=== PATIENT | male | born 1970 | race American Indian/Alaskan Native ===

== ENCOUNTER 2017-04-10 13:32 | Observation (INO) | payer OTHER ==
[2017-04-10 13:56] VITALS: BMI 23.7
[2017-04-10] MEDS ORDERED: Sodium Chloride 0.9% 1,000 ML IV STA (13:59)
--- NOTE | 2017-04-10 14:04 | ED PDOC ---
Arrival/HPI - General Time Seen by Provider: 04/10/17 13:58 Historian: Patient - History of Present Illness Narrative History of Present Illness (Text): 04/10/17 14:01 46 y/o male, pmh including asthma, nkda, psychiatric history including alcohol abuse, c/o tremors/anxious/nausea/vomiting/diarrhea started today. Pt. stated that he has been drinking every day with alcohol dependent, last drink yesterday and suddenly stop drinking, been having nausea/vomiting with tongue and hand tremors, feeling anxious, no chest pain or shortness of breath, had abdominal pain after vomiting, no night sweat, admits couple episodes of diarrhea, no urinary symptoms, no urinary or bowel incontinence or retention, no other medical or psychological complaints. Past Medical History - Provider Review Nursing Documentation Reviewed: Yes - Pulmonary Hx Respiratory Disorders: Yes Hx Asthma: Yes - Musculoskeletal/Rheumatological Hx Falls: No - Psychiatric Hx Substance Use: No Family/Social History - Physician Review Nursing Documentation Reviewed: Yes Family/Social History: Unknown Family HX Smoking Status: Unknown If Ever Smoked Hx Alcohol Use: Yes (4 to 6 beers every other day) Hx Substance Use: No Allergies/Home Meds Allergies/Adverse Reactions: Allergies No Known Allergies Allergy (Verified 01/16/16 08:31) Home Medications: Home Meds Medication Instructions Recorded Confirmed No Known Home Med 04/10/17 04/10/17 Review of Systems - Review of Systems Constitutional: Fatigue. absent: Fevers Eyes: absent: Vision Changes ENT: absent: Hearing Changes Respiratory: absent: SOB, Cough Cardiovascular: absent: Chest Pain Gastrointestinal: Abdominal Pain, Diarrhea, Nausea, Vomiting Genitourinary Male: absent: Dysuria Musculoskeletal: absent: Arthralgias, Myalgias Skin: absent: Rash, Pruritis Neurological: absent: Headache, Dizziness Psychiatric: Other (+tremors). absent: Anxiety, Depression, Suicidal Ideation Physical Exam Vital Signs Reviewed: Yes Vital Signs Temp Pulse Resp BP Pulse Ox 04/10/17 17:53 79 18 131/76 95 04/10/17 16:50 82 18 127/76 97 04/10/17 14:09 99.0 F 74 18 123/69 98 Temperature: Afebrile Blood Pressure: Normal Pulse: Regular Respiratory Rate: Normal Appearance: Positive for: Well-Appearing, Non-Toxic, Comfortable Pain Distress: Mild Mental Status: Positive for: Alert and Oriented X 3 - Systems Exam Head: Present: Atraumatic, Normocephalic Pupils: Present: PERRL Extroacular Muscles: Present: EOMI Conjunctiva: Present: Normal Ears: Present: NORMAL TM, Normal Canal. No: Erythema Mouth: Present: Moist Mucous Membranes Pharnyx: Present: Other (+tongue fasciculations). No: ERYTHEMA, EXUDATE, TONSILS ENLARGED Nose (Internal): Present: No Active Bleeding, Moist. No: Rhinorrhea, Purulent Mucous, Epistaxis Neck: Present: Normal Range of Motion, Trachea Midline. No: Meningeal Signs, MIDLINE TENDERNESS, Paraspinal Tenderness, Lymphadenopathy Respiratory/Chest: Present: Clear to Auscultation, Good Air Exchange. No: Respiratory Distress, Accessory Muscle Use Cardiovascular: Present: Regular Rate and Rhythm, Normal S1, S2. No: Murmurs Abdomen: Present: Tenderness (+epigastric tenderness, negative cole sign), Normal Bowel Sounds. No: Distention, Peritoneal Signs, Rebound, Guarding Back: Present: Normal Inspection Upper Extremity: Present: Normal Inspection, Other (+fine hand tremors). No: Cyanosis, Edema Lower Extremity: Present: Normal Inspection. No: Edema Neurological: Present: GCS=15, CN II-XII Intact, Speech Normal, Motor Func Grossly Intact, Gait Normal, Memory Normal Skin: Present: Warm, Dry, Normal Color. No: Rashes Psychiatric: Present: Alert, Oriented x 3, Normal Insight, Normal Concentration Medical Decision Making ED Course and Treatment: 04/10/17 14:05 -labs/ua/uds/ck/magnesium level -cxr -ivf/pepcid/zofran/ativan 2mg -observe and reassess 04/10/17 17:04 -Labs are non-significant except Mg 1.6 (mag 2gm IV ordered), Bilirubin 3.0 ( epigastric abdominal pain, gallbladder sonogram ordered). -Chest xray show no acute findings. -Gallbladder sonogram show Cholelithiasis identified with moderate gallbladder is distension and mural thickening of the gallbladder wall up to 5 mm. No pericholecystic fluid collection is identified and there is no sonographic Cole sign reported by the technologist. A mixed pattern for potential cholecystitis is therefore present. Clinically correlate. Normal CBD caliber. No choledocholithiasis. Echogenic liver likely reflects diffuse fatty infiltration or other potential infiltrative process. -Pt. has no abdominal pain at this point, cholecystitis is less likely. -I spoke to Dr. Tom Currie, discussed about the case/labs/radiology result, she will consult with the general surgeon and admit him to remote tele. -I discussed with Dr. Redman about his sonogram, suggest no emergent intervention indicated at this time if the patient is comfortable, he will put in the admission order. -I spoke to the surgical rn about this case as well, they are awared. - Lab Interpretations Lab Results: 04/10/17 14:20 04/10/17 14:20 Lab Results 04/10/17 14:20: WBC 3.3 L D, RBC 4.62, Hgb 15.2, Hct 43.3, MCV 93.7, MCH 32.9, MCHC 35.1, RDW 13.5, Plt Count 127, MPV 10.3, Gran % 51.5, Lymph % (Auto) 31.2, [place] % (Auto) 15.5 H, Eos % (Auto) 0.9 L, Baso % (Auto) 0.9, Gran # 1.70, Lymph # (Auto) 1.0 L, [place] # (Auto) 0.5, Eos # (Auto) 0.0, Baso # (Auto) 0.03 04/10/17 14:20: Alcohol, Quantitative < 10 04/10/17 14:20: Salicylates < 1 L, Acetaminophen < 10.0 L 04/10/17 14:20: Sodium 141, Potassium 4.2, Chloride 104, Carbon Dioxide 24, Anion Gap 17, BUN 3 L, Creatinine 0.7 L, Est GFR ( Amer) > 60, Est GFR ( Non-Af Amer) > 60, Random Glucose 128 H, Calcium 9.4, Magnesium 1.3 L, Total Bilirubin 3.0 H, AST 128 H, ALT 31, Alkaline Phosphatase 129 H, Total Creatine Kinase 73, Total Protein 8.6 H, Albumin 3.5, Globulin 5.1, Albumin/Globulin Ratio 0.7 L, Lipase 189 04/10/17 14:20: Influenza Typ A,B (EIA) Negative for flu a/b - RAD Interpretation Radiology Orders: 04/10/17 13:59 CHEST PORTABLE [RAD] Stat 04/10/17 14:56 GALL BLADDER [US] Stat HISTORY: medical clearance COMPARISON: No prior. FINDINGS: LUNGS: No active pulmonary disease. PLEURA: No significant pleural effusion identified, no pneumothorax apparent. CARDIOVASCULAR: No radiographic findings to suggest acute or significant cardiovascular disease. OSSEOUS STRUCTURES: No significant abnormalities. VISUALIZED UPPER ABDOMEN: Normal. OTHER FINDINGS: None. IMPRESSION: No active disease. Manager Shipping: Radiologist - Medication Orders Current Medication Orders: Discontinued Medications Famotidine (Pepcid) 20 mg IVP STAT STA Stop: 04/10/17 14:00 Last Admin: 04/10/17 14:35 Dose: 20 mg IVP Administration Document 04/10/17 14:35 GMD (Rec: 04/10/17 14:35 GMD [id number]) Charges for Administration # of IVP Administrations 1 Sodium Chloride (Sodium Chloride 0.9%) 1,000 mls @ 999 mls/hr IV .Q1H1M STA Stop: 04/10/17 14:59 Last Admin: 04/10/17 14:35 Dose: 999 mls/hr eMAR Start Stop Document 04/10/17 14:35 GMD (Rec: 04/10/17 14:35 GMD [id number]) Intravenous Solution Start Date 04/10/17 Start Time 14:35 End Date 04/10/17 End time 15:35 Total Infusion Time 60 Magnesium Sulfate 2 gm/ Sodium (Chloride) 104 mls @ 102 mls/hr IVPB ONCE ONE Stop: 04/10/17 15:54 Last Admin: 04/10/17 16:55 Dose: 102 mls/hr eMAR Start Stop Document 04/10/17 16:55 SRE (Rec: 04/10/17 16:56 SRE [id number]) Intravenous Solution Start Date 04/10/17 Start Time 16:56 End Date 04/10/17 End time 17:55 Total Infusion Time 59 Lorazepam (Ativan) 2 mg IVP ONCE ONE PRN Reason: Protocol Stop: 04/10/17 14:00 Last Admin: 04/10/17 14:34 Dose: 2 mg IVP Administration Document 04/10/17 14:34 GMD (Rec: 04/10/17 14:34 GMD [id number]) Charges for Administration # of IVP Administrations 1 Ondansetron HCl (Zofran Inj) 4 mg IVP STAT STA Stop: 04/10/17 14:02 Last Admin: 04/10/17 14:34 Dose: 4 mg IVP Administration Document 04/10/17 14:34 GMD (Rec: 04/10/17 14:34 GMD [id number]) Charges for Administration # of IVP Administrations 1 - PA / NATIONAL FACILITIES MANAGER / Resident Statement MD/DO has reviewed & agrees with the documentation as recorded. Disposition/Present on Arrival - Present on Arrival Any Indicators Present on Arrival: No History of DVT/PE: No History of Uncontrolled Diabetes: No Urinary Catheter: No History of Decub. Ulcer: No History Surgical Site Infection Following: None - Disposition Have Diagnosis and Disposition been Completed?: Yes Diagnosis: Cholelithiasis NOS, Alcohol withdrawal Disposition: HOSPITALIZED Disposition Time: 17:06 Patient Plan: Admission, Telemetry Patient Problems: Current Active Problems Problem Status Onset Cholelithiasis NOS Acute Alcohol withdrawal Acute Condition: STABLE Referrals: Tej Vela MD [Primary Care Provider] - Follow up with primary
[2017-04-10 14:40] LABS: BASO # 0.03 K/mm3 (0.0-2.0); BASO % 0.9 % (0.0-3.0); EOS % 0.9 % (1.5-5.0); GRAN # 1.7 (1.4-6.5); GRAN % 51.5 % (50.0-68.0); HEMOGLOBIN 15.2 g/dL (14.0-18.0); LYMPH % 31.2 % (22.0-35.0); MEAN CELL VOLUME 93.7 fl (80.0-105.0); MEAN CORPUSCULAR HEMOGLOBIN 32.9 pg (25.0-35.0); MEAN CORPUSCULAR HGB CONC 35.1 g/dl (31.0-37.0); MEAN PLATELET VOLUME 10.3 fl (7.0-11.0); MONO # 0.5 (0.1-0.6); MONO % 15.5 % (1.0-6.0); RBC 4.62 10^6/uL (3.5-6.1); RED CELL DISTRIBUTION WIDTH 13.5 % (11.5-14.5); WHITE BLOOD COUNT 3.3 10^3/ul (4.5-11.0)
[2017-04-10 14:52] LABS: ALB/GLOB RATIO 0.7 (1.1-1.8); ALBUMIN 3.5 g/dL (3.0-4.8); ALT/SGPT 31 U/L (7-56); AST/SGOT 128 U/L (17-59); BLOOD UREA NITROGEN 3 mg/dL (7-21); CALCIUM 9.4 mg/dL (8.4-10.5); GFR AFRICAN-AMERICAN > 60; GFR NON-AFRICAN AMERICAN > 60; LIPASE 189 U/L (23-300); MAGNESIUM 1.3 mg/dL (1.7-2.2)
[2017-04-10] MEDS ORDERED: Magnesium Sulfate 2 GM in Sodium Chloride 0.9% 100 ML IVPB ONE (14:53)
--- NOTE | 2017-04-10 15:11 | RAD ---
HISTORY: medical clearance COMPARISON: No prior. FINDINGS: LUNGS: No active pulmonary disease. PLEURA: No significant pleural effusion identified, no pneumothorax apparent. CARDIOVASCULAR: No radiographic findings to suggest acute or significant cardiovascular disease. OSSEOUS STRUCTURES: No significant abnormalities. VISUALIZED UPPER ABDOMEN: Normal. OTHER FINDINGS: None. IMPRESSION: No active disease. Concordant results with the preliminary interpretation rendered by the emergency department physician procedure.
--- NOTE | 2017-04-10 16:29 | US ---
HISTORY: epigastric pain COMPARISON: None. TECHNIQUE: Sonographic evaluation of the right upper quadrant of the abdomen. FINDINGS: LIVER: Measures 15.4 cm in length. Increased echogenicity of the liver parenchyma suggests mild diffuse fatty infiltration or other infiltrative process. No defined mass is identified throughout the liver. There is no intrahepatic biliary dilatation. GALLBLADDER: Gallbladder appears mildly distended with mural thickening up to 5 mm but no pericholecystic fluid collection. [id number] cholelithiasis is identified within the gallbladder lumen however there is no sonographic Cole sign. Clinically correlate for potential cholecystitis nevertheless. COMMON BILE DUCT: Measures 3.4 mm. No stones. No dilatation. PANCREAS: The tail of the pancreas is obscured by overlying bowel gas with remainder unremarkable. RIGHT KIDNEY: Measures 10.0 cm in length. Normal echogenicity. No calculus, mass, or hydronephrosis. AORTA: No aneurysmal dilatation. IVC: Unremarkable. OTHER FINDINGS: None . IMPRESSION: Cholelithiasis identified with moderate gallbladder is distension and mural thickening of the gallbladder wall up to 5 mm. No pericholecystic fluid collection is identified and there is no sonographic Cole sign reported by the technologist. A mixed pattern for potential cholecystitis is therefore present. Clinically correlate. Normal CBD caliber. No choledocholithiasis. Echogenic liver likely reflects diffuse fatty infiltration or other potential infiltrative process.
[2017-04-10 16:52] LABS: ACETAMINOPHEN < 10.0 ug/ml (10.0-20.0); SALICYLATE < 1 mg/dL (2.0-20.0)
[2017-04-10] MEDS ORDERED: Vitamins A & D Oint UD Foilpak TOP PRN (18:12)
[2017-04-10] MEDS ORDERED: Folic Acid 1 MG, Thiamine 100 MG, Multivitamin (MVI) 10 ML in Dextrose 5% In Water 1,00... IV SCH (18:15)
--- NOTE | 2017-04-10 18:45 | CP.PCM.HP ---
<Facundo Rodriguez - Last Filed: 04/10/17 18:31> History of Present Illness - History of Present Illness History of Present Illness: Mr. Logan is a 46 year old male with a past medical history significant for fatty liver, alcohol abuse/withdrawal, asthma, and HLD who presents with epigastric and hypogastric/RLQ abdominal pain with two episodes of associated non-bloody vomiting and multiple episodes of non-bloody diarrhea that began yesterday. Patient reports that while at rest yesterday, he suddenly experienced epigastric pain that he describes as a pressure and rates as a 10/ 10 that has been constant since that time, although fluctuations in the intensity were noted. Shortly after this he also began to experience a sharp hypogastric/RLQ pain that he rates as a 10/10 that has also been constant since that time, although fluctuations in intensity were also noted. He reports that yesterday he had two episodes of associated non-bloody vomiting and has had continuous diarrhea since this morning. He reports that he tried Tramadol and an unknown medication with no improvement. He reports that he was seen in Dr. Vela's office last week with similar complaints, for which a CT Abdomen/ Pelvis was done but patient was not notified of the results. He denies fever, chills, headache, changes in his vision, rhinorrhea, sore throat, chest pain, palpitations, syncope, leg swelling, SOB, cough, wheezing, sputum production, hematemesis, hematochezia, melena, urinary symptoms, skin changes, or any numbness/tingling/weakness of any extremity. PMH: Fatty liver, alcohol abuse/withdrawal, asthma, and HLD PSH: Denies Family History: Denies familial cardiac or cancer history Social History: Denies tobacco or illicit drug use; Endorses social alcohol use (noted to have history of alcohol abuse per EMR) with last drink yesterday (beer ) Allergies: NKDA Home Medications: "Asthma pump", "water pill" and "something for my cholesterol " Present on Admission - Present on Admission Any Indicators Present on Admission: No Review of Systems - Review of Systems Review of Systems: As per MAR, otherwise negative Past Patient History - Infectious Disease Hx of Infectious Diseases: None - Tetanus Immunizations Tetanus Immunization: Unknown - Past Medical History & Family History Past Medical History?: Yes Past Family History: Reviewed and not pertinent - Past Social History Smoking Status: Never Smoked Drugs: Denies - PULMONARY Hx Respiratory Disorders: Yes Hx Asthma: Yes - MUSCULOSKELETAL/RHEUMATOLOGICAL Hx Falls: No - PSYCHIATRIC Hx Substance Use: No - SURGICAL HISTORY Hx Surgeries: No Meds Allergies/Adverse Reactions: Allergies Allergy/AdvReac Type Severity Reaction Status Date / Time No Known Allergies Allergy Verified 01/16/16 08:31 Physical Exam - Constitutional Appears: Non-toxic, No Acute Distress - Head Exam Head Exam: ATRAUMATIC, NORMAL INSPECTION, NORMOCEPHALIC - Eye Exam Eye Exam: EOMI, Normal appearance, PERRL - ENT Exam ENT Exam: Mucous Membranes Moist, Normal Exam - Neck Exam Neck exam: Positive for: Full Rom, Normal Inspection. Negative for: Lymphadenopathy - Respiratory Exam Respiratory Exam: Clear to Auscultation Bilateral, NORMAL BREATHING PATTERN. absent: Accessory Muscle Use, Chest Wall Tenderness, Decreased Breath Sounds, Prolonged Expiratory Phase, Rales, Rhonchi, Wheezes, Respiratory Distress, Stridor - Cardiovascular Exam Cardiovascular Exam: REGULAR RHYTHM, RRR, +S1, +S2. absent: Bradycardia, Tachycardia, Clicks, Diastolic murmur, Gallop, Irregular Rhythm, JVD, Rubs, +S4 , Systolic Murmur - GI/Abdominal Exam GI & Abdominal Exam: Normal Bowel Sounds, Soft, Tenderness (Epigastric and RLQ TTP; [place] Sign and McBurneys point positive). absent: Bruit, Diminished Bowel Sounds, Distended, Firm, Guarding, Hernia, Hyperactive Bowel Sounds, Hypoactive Bowel Sounds, Mass, Organomegaly, Pulsatile Mass, Rebound, Rigid - Extremities Exam Extremities exam: Positive for: full ROM, normal capillary refill, normal inspection, pedal pulses present. Negative for: calf tenderness, joint swelling , pedal edema, tenderness - Back Exam Back exam: NORMAL INSPECTION - Neurological Exam Neurological exam: Alert, CN II-XII Intact, Oriented x3 Additional comments: Tongue and upper extremity fasciculation noted - Psychiatric Exam Psychiatric exam: Normal Affect, Normal Mood - Skin Skin Exam: Dry, Intact, Normal Color, Warm Results - Vital Signs Recent Vital Signs: Last Vital Signs Temp 99.0 F 04/10/17 14:09 Pulse 79 04/10/17 17:53 Resp 18 04/10/17 17:53 BP 131/76 04/10/17 17:53 Pulse Ox 95 02/14/18 17:53 - Labs Result Diagrams: 04/10/17 14:20 04/10/17 14:20 Assessment & Plan - Assessment and Plan (Free Text) Assessment: 46 year old male with a past medical history significant for fatty liver, alcohol abuse/withdrawal, asthma, and HLD who presents with epigastric and hypogastric/RLQ abdominal pain with two episodes of associated non-bloody vomiting and multiple episodes of non-bloody diarrhea that began yesterday. Patient found to have elevated total bilirubin and liver enzymes in ED. A GB US showed cholelithiasis. Prophylactic antibiotics were initiated and surgery was consulted. Patient is also being treated for alcohol withdrawal and diarrhea. Plan: 1. Epigastric and Hypogastric/RLQ Abdominal Pain -GB U/S showed cholelithiasis with moderate gallbladder distention and GB wall thickening with mixed pattern for possible cholecystitis. CBD was noted to be normal caliber -HIDA scan pending -Three serial troponins pending -Hepatitis panel pending -IV Rocephin and Flagyl -Toradol 60mg IM Q8 PRN for pain control -Zofran PRN for N/V -NPO Diet -Surgery consulted, all recommendations appreciated 2. Alcohol Withdrawal -Alcohol level <10 on admission -UDS pending -Ativan 2mg IVP Q4 DAILY and 1mg IVP Q2 PRN -Banana Bag in D5W -CIWA Assessments Q4 -Fall, Aspiration and Seizure precautions 3. Diarrhea -C. Diff and Fecal Leukocytes pending 4. History of HLD -Lipid panel pending GI Prophylaxis: Protonix DVT Prophylaxis: Heparin and SCD's Patient seen and case discussed with attending, Dr. Tom Currie. - Date & Time Date: 04/10/17 Time: 18:50 <Tom Currie B - Last Filed: 04/11/17 09:00> Results - Vital Signs Recent Vital Signs: Last Vital Signs Temp 98.9 F 04/10/17 18:32 Pulse 58 L 04/11/17 06:00 Resp 18 04/10/17 19:34 BP 142/88 04/10/17 18:32 Pulse Ox 95 04/10/17 18:32 - Labs Result Diagrams: 04/11/17 06:00 04/11/17 06:00 Labs: Laboratory Results - last 24 hr 04/10/17 04/11/17 04/11/17 18:26 00:20 06:00 WBC 3.5 L RBC 4.24 Hgb 13.7 L Hct 40.0 L MCV 94.3 MCH 32.3 MCHC 34.3 RDW 13.4 Plt Count 109 L MPV 10.6 Gran % 35.4 L Lymph % (Auto) 38.2 H [place] % (Auto) 15.2 H Eos % (Auto) 10.3 H Baso % (Auto) 0.9 Gran # 1.23 L Lymph # (Auto) 1.3 [place] # (Auto) 0.5 Eos # (Auto) 0.4 Baso # (Auto) 0.03 PT INR APTT Sodium Potassium Chloride Carbon Dioxide Anion Gap BUN Creatinine Est GFR ( Amer) Est GFR (Non-Af Amer) Random Glucose Calcium Phosphorus Magnesium Total Bilirubin AST ALT Alkaline Phosphatase Troponin I < 0.01 Total Protein Albumin Globulin Albumin/Globulin Ratio Triglycerides Cholesterol LDL Cholesterol Direct HDL Cholesterol Urine Opiates Screen Negative Urine Methadone Screen Negative Ur Barbiturates Screen Negative Ur Phencyclidine Scrn Negative Ur Amphetamines Screen Negative U Benzodiazepines Scrn Negative U Oth Cocaine Metabols Negative U Cannabinoids Screen Negative 04/11/17 04/11/17 04/11/17 06:00 06:00 06:00 WBC RBC Hgb Hct MCV MCH MCHC RDW Plt Count MPV Gran % Lymph % (Auto) [place] % (Auto) Eos % (Auto) Baso % (Auto) Gran # Lymph # (Auto) [place] # (Auto) Eos # (Auto) Baso # (Auto) PT INR APTT 37.9 H Sodium 138 Potassium 3.7 Chloride 104 Carbon Dioxide 27 Anion Gap 10 BUN 4 L Creatinine 0.7 L Est GFR ( Amer) > 60 Est GFR (Non-Af Amer) > 60 Random Glucose 97 Calcium 8.8 Phosphorus 4.4 Magnesium 2.1 Total Bilirubin 4.0 H AST 76 H D ALT 31 Alkaline Phosphatase 108 Troponin I < 0.01 Total Protein 7.3 Albumin 2.8 L Globulin 4.6 Albumin/Globulin Ratio 0.6 L Triglycerides 45 Cholesterol 156 LDL Cholesterol Direct 42 HDL Cholesterol 98 H Urine Opiates Screen Urine Methadone Screen Ur Barbiturates Screen Ur Phencyclidine Scrn Ur Amphetamines Screen U Benzodiazepines Scrn U Oth Cocaine Metabols U Cannabinoids Screen 04/11/17 06:30 WBC RBC Hgb Hct MCV MCH MCHC RDW Plt Count MPV Gran % Lymph % (Auto) [place] % (Auto) Eos % (Auto) Baso % (Auto) Gran # Lymph # (Auto) [place] # (Auto) Eos # (Auto) Baso # (Auto) PT 13.5 H INR 1.17 H APTT Sodium Potassium Chloride Carbon Dioxide Anion Gap BUN Creatinine Est GFR ( Amer) Est GFR (Non-Af Amer) Random Glucose Calcium Phosphorus Magnesium Total Bilirubin AST ALT Alkaline Phosphatase Troponin I Total Protein Albumin Globulin Albumin/Globulin Ratio Triglycerides Cholesterol LDL Cholesterol Direct HDL Cholesterol Urine Opiates Screen Urine Methadone Screen Ur Barbiturates Screen Ur Phencyclidine Scrn Ur Amphetamines Screen U Benzodiazepines Scrn U Oth Cocaine Metabols U Cannabinoids Screen Attending/Attestation - Attestation I have personally seen and examined this patient.: Yes I have fully participated in the care of the patient.: Yes I have reviewed all pertinent clinical information: Yes Notes (Text): I have seen and examined the patient at bedside. Agree with the above note with the following additions/ exceptions: Briefly this is 46 year old male with history of fatty liver, alcohol abuse/withdrawal, asthma, and HLD who was admitted for evaluation of abdominal pain. Patient is tender in the RUQ. GB ultrasound revealed cholethiasis with possible cholecystitis. CBD normal. Will order HIDA. Will monitor serial troponins and EKG. Will start npo, banana bag, IV antibiotics, analgesics and antiemetics. Will consult surgery team. Start ativan prn for alcohol withdrawal. Hep panel ordered for transaminitis. Stool studies will be sent for diarrhea. Upon discharge patient will follow up with Dr Vela. Dr Tom Currie
[2017-04-10 19:11] LABS: BARBITURATES, UR NEGATIVE (NEGATIVE); BENZODIAZEPINES, UR NEGATIVE (NEGATIVE); OPIATES, UR NEGATIVE (NEGATIVE); PHENCYCLIDINE, UR NEGATIVE (NEGATIVE)
[2017-04-10] MEDS: Sodium Chloride 0.9% 1,000 ML IV SCH (21:04)
[2017-04-10] MEDS: metroNIDAZOLE IV 500 mg/100 ml 500 MG/100 ML BAG IVPB SCH (21:40)
--- NOTE | 2017-04-10 22:08 | CP.PCM.CON ---
History of Present Illness - History of Present Illness History of Present Illness: Surgery: Dr. Medeiros CC: "stomach hurts" HPI: Patient is a 46 y/o male w/ known ETIH abuse and fatty liver disease presents complaining of abdominal pain that started yesterday. He currently states the pain is in his lower right abdomen. He describes the pain are achy non-radiating to other abdominal quadrants. He reports the pain starting acutely without illiciting events. He denies strange food types or sick contacts. He denies similar pain in the past. He reports normal bowel movement yesterday. Denies n/v/diarrhea, bloody stools. He reports feelings chills but denies fever. He denies prior EGD or colonoscopy. PMH: patient denies but per prior documentation: Hepatic Steatosis, HLD, Asthma , ETOH abuse PSH: denies NKDA Family hx: noncontributory Social: denies tobacco or drug use. Reports drinking ETOH, 2 cans of beer/day Review of Systems - Review of Systems All systems: reviewed and no additional remarkable complaints except Review of Systems: neg unless stated in HPI - Constitutional Constitutional: Chills. absent: Fever, Weight Loss - EENT Eyes: absent: Blurred Vision, Change in Vision Nose/Mouth/Throat: absent: Nasal Congestion, Nose Pain - Cardiovascular Cardiovascular: absent: Chest Pain, Diaphoresis - Respiratory Respiratory: absent: Cough, Wheezing - Gastrointestinal Gastrointestinal: Abdominal Pain. absent: Bloating, Change in Bowel Habits, Constipation, Loose Stools, Melena, Nausea - Genitourinary Genitourinary: absent: Hematuria, Pyuria - Musculoskeletal Musculoskeletal: absent: Joint Swelling, Muscle Weakness - Integumentary Integumentary: absent: Skin Ulcer, Sores - Neurological Neurological: absent: Dizziness, Headaches - Psychiatric Psychiatric: absent: Confusion, Depression - Endocrine Endocrine: absent: Polyphagia, Polyuria - Hematologic/Lymphatic Hematologic: absent: Easy Bleeding, Easy Bruising Past Patient History - Infectious Disease Hx of Infectious Diseases: None - Tetanus Immunizations Tetanus Immunization: Unknown - Past Medical History & Family History Past Medical History?: Yes Past Family History: Reviewed and not pertinent - Past Social History Smoking Status: Never Smoked Alcohol: > 2 Drinks/Day - CARDIAC Hx Cardiac Disorders: Yes Hx Heart Transplant: Yes - PULMONARY Hx Respiratory Disorders: Yes Hx Asthma: Yes - NEUROLOGICAL Hx Neurological Disorder: No - HEENT Hx HEENT Problems: No - RENAL Hx Chronic Kidney Disease: No - ENDOCRINE/METABOLIC Hx Endocrine Disorders: No - HEMATOLOGICAL/ONCOLOGICAL Hx Blood Disorders: No - INTEGUMENTARY Hx Dermatological Problems: No - MUSCULOSKELETAL/RHEUMATOLOGICAL Hx Musculoskeletal Disorders: No Hx Falls: No - GASTROINTESTINAL Hx Gastrointestinal Disorders: No - GENITOURINARY/GYNECOLOGICAL Hx Genitourinary Disorders: No - PSYCHIATRIC Hx Psychophysiologic Disorder: Yes (etoh) - SURGICAL HISTORY Hx Surgeries: No Meds Allergies/Adverse Reactions: Allergies Allergy/AdvReac Type Severity Reaction Status Date / Time No Known Allergies Allergy Verified 01/16/16 08:31 - Medications Medications: Current Medications Folic Acid (Folic Acid) 1 mg PO DAILY [facility] Heparin Sodium (Porcine) (Heparin) 5,000 units SC Q12 DAILY PRN Reason: Protocol Last Admin: 04/10/17 21:39 Dose: 5,000 units Metronidazole (Flagyl) 500 mg in 100 mls @ 100 mls/hr IVPB Q8 DAILY PRN Reason: Protocol Last Admin: 04/10/17 21:40 Dose: 100 mls/hr Ceftriaxone Sodium (Rocephin 1 Gram Ivpb) 1 gm in 100 mls @ 100 mls/hr IVPB DAILY DAILY PRN Reason: Protocol Sodium Chloride (Sodium Chloride 0.9%) 1,000 mls @ 100 mls/hr IV .Q10H [facility] Last Admin: 04/10/17 21:04 Dose: Not Given Ketorolac Tromethamine (Toradol) 60 mg IM Q8H PRN PRN Reason: Pain, moderate (4-7) Stop: 04/15/17 18:14 Lorazepam (Ativan) 1 mg IVP Q2H PRN; Protocol PRN Reason: Anxiety Lorazepam (Ativan) 2 mg IVP Q4H DAILY PRN Reason: Protocol Last Admin: 04/10/17 21:38 Dose: 2 mg Multivitamins/Minerals (Therapeutic-M Tab) 1 tab PO 0800 [facility] Ondansetron HCl (Zofran Inj) 4 mg IVP Q4H PRN PRN Reason: Nausea/Vomiting Pantoprazole Sodium (Protonix Inj) 40 mg IVP DAILY [facility] Thiamine HCl (Vitamin B1 Tab) 100 mg PO DAILY [facility] Vitamin A (Vitamin A & D Oint Ud Foilpak) 1 ea TOP Q2 PRN PRN Reason: Dry mouth Physical Exam - Constitutional Appears: Non-toxic, No Acute Distress - Head Exam Head Exam: ATRAUMATIC, NORMOCEPHALIC - Eye Exam Eye Exam: EOMI - ENT Exam ENT Exam: Mucous Membranes Moist - Respiratory Exam Respiratory Exam: NORMAL BREATHING PATTERN. absent: Respiratory Distress - Cardiovascular Exam Cardiovascular Exam: REGULAR RHYTHM. absent: Tachycardia - GI/Abdominal Exam GI & Abdominal Exam: Soft. absent: Distended, Guarding, Hernia, Rebound, Rigid , Tenderness - Extremities Exam Extremities exam: Positive for: normal inspection. Negative for: calf tenderness - Back Exam Back exam: absent: CVA tenderness (L), CVA tenderness (R) - Neurological Exam Neurological exam: Alert - Psychiatric Exam Psychiatric exam: Flat Affect, Normal Mood - Skin Skin Exam: Dry, Normal Color, Warm Results - Vital Signs Recent Vital Signs: Last Vital Signs Temp 98.9 F 04/10/17 18:32 Pulse 73 04/10/17 18:32 Resp 18 04/10/17 19:34 BP 142/88 04/10/17 18:32 Pulse Ox 95 04/10/17 18:32 - Labs Result Diagrams: 04/10/17 14:20 04/10/17 14:20 Labs: Laboratory Results - last 24 hr 04/10/17 18:26 Urine Opiates Screen Negative Urine Methadone Screen Negative Ur Barbiturates Screen Negative Ur Phencyclidine Scrn Negative Ur Amphetamines Screen Negative U Benzodiazepines Scrn Negative U Oth Cocaine Metabols Negative U Cannabinoids Screen Negative - Impressions Impression: u/s: + gallstones, -perichole fluid, thick wall, neg gonzalez's Assessment & Plan - Assessment and Plan (Free Text) Assessment: 46 y/o male w/ abdominal pain, resolved Plan: -recommend obtaining CT scan with PO contrast -+ stones on CT scan but patient without biliary colic type pain- most likely not cholecystitis -enzyme elevation most likely related to underlying liver disease -rec hepatitis panel -pending cT determines surgical intervention -NPO -IVF hydration -ETOH abuse, monitor for withdraw -repeat labs in am -d/w Dr. Waldemar Wahl PGY3 - Date & Time Date: 04/10/17 Time: 22:18
[2017-04-11] MEDS: metroNIDAZOLE IV 500 mg/100 ml 500 MG/100 ML BAG IVPB SCH ×3 (05:22→21:35)
[2017-04-11] MEDS ORDERED: Barium Sulfate Susp 2.1% w/v, 2.0% w/w 450 mL Bottle PO ONE (06:36)
[2017-04-11 07:07] LABS: ALB/GLOB RATIO 0.6 (1.1-1.8); ALBUMIN 2.8 g/dL (3.0-4.8); ALT/SGPT 31 U/L (7-56); AST/SGOT 76 U/L (17-59); BLOOD UREA NITROGEN 4 mg/dL (7-21); CALCIUM 8.8 mg/dL (8.4-10.5); GFR AFRICAN-AMERICAN > 60; GFR NON-AFRICAN AMERICAN > 60; HDL CHOLESTEROL 98 mg/dL (29-60); MAGNESIUM 2.1 mg/dL (1.7-2.2)
[2017-04-11 07:09] LABS: BASO # 0.03 K/mm3 (0.0-2.0); BASO % 0.9 % (0.0-3.0); EOS # 0.4 (0.0-0.7); EOS % 10.3 % (1.5-5.0); GRAN # 1.23 (1.4-6.5); GRAN % 35.4 % (50.0-68.0); HEMOGLOBIN 13.7 g/dL (14.0-18.0); LYMPH # 1.3 (1.2-3.4); LYMPH % 38.2 % (22.0-35.0); MEAN CELL VOLUME 94.3 fl (80.0-105.0); MEAN CORPUSCULAR HEMOGLOBIN 32.3 pg (25.0-35.0); MEAN CORPUSCULAR HGB CONC 34.3 g/dl (31.0-37.0); MEAN PLATELET VOLUME 10.6 fl (7.0-11.0); MONO # 0.5 (0.1-0.6); MONO % 15.2 % (1.0-6.0); RBC 4.24 10^6/uL (3.5-6.1); RED CELL DISTRIBUTION WIDTH 13.4 % (11.5-14.5); WHITE BLOOD COUNT 3.5 10^3/ul (4.5-11.0)
[2017-04-11 07:10] LABS: TROPONIN I < 0.01 ng/mL
[2017-04-11 07:12] LABS: LDL CHOLESTEROL 42 mg/dL (0-129)
[2017-04-11 07:58] LABS: INR 1.17 (0.93-1.08); PROTHROMBIN TIME 13.5 SECONDS (9.4-12.5)
[2017-04-11] MEDS: cefTRIAXone 1 gm 1 GM/100 ML BAG IVPB SCH (09:07)
[2017-04-11] MEDS: Sodium Chloride 0.9% 1,000 ML IV SCH ×2 (09:08→17:19)
[2017-04-11] MEDS: Multivitamin With Minerals Tab PO SCH (09:08)
[2017-04-11] MEDS ORDERED: Iohexol 350 MG/100 ML VIAL ONE (09:50)
[2017-04-11 10:59] VITALS: RESP 20
--- NOTE | 2017-04-11 11:35 | CP.PCM.PN ---
Subjective - Date & Time of Evaluation Date of Evaluation: 04/11/17 Time of Evaluation: 11:26 - Subjective Subjective: Surgery: Dr. Medeiros Pt seen and examined. Resting comfortably in bed. Mild R side abd pain persists. Objective - Vital Signs/Intake and Output Vital Signs (last 24 hours): Temp Pulse Resp BP Pulse Ox 98.3 F 59 L 20 144/98 H 99 04/11/17 06:00 04/11/17 06:00 04/11/17 06:00 04/11/17 06:00 04/11/17 06:00 Intake and Output: 04/11/17 04/11/17 06:59 18:59 Intake Total 0 Output Total 100 Balance -100 - Medications Medications: Current Medications Folic Acid (Folic Acid) 1 mg PO DAILY [facility] Last Admin: 04/11/17 09:06 Dose: 1 mg Heparin Sodium (Porcine) (Heparin) 5,000 units SC Q12 DAILY PRN Reason: Protocol Last Admin: 04/11/17 09:06 Dose: 5,000 units Metronidazole (Flagyl) 500 mg in 100 mls @ 100 mls/hr IVPB Q8 DAILY PRN Reason: Protocol Last Admin: 04/11/17 05:22 Dose: 100 mls/hr Ceftriaxone Sodium (Rocephin 1 Gram Ivpb) 1 gm in 100 mls @ 100 mls/hr IVPB DAILY DAILY PRN Reason: Protocol Last Admin: 04/11/17 09:07 Dose: 100 mls/hr Sodium Chloride (Sodium Chloride 0.9%) 1,000 mls @ 100 mls/hr IV .Q10H [facility] Last Admin: 04/11/17 09:08 Dose: 100 mls/hr Ketorolac Tromethamine (Toradol) 60 mg IM Q8H PRN PRN Reason: Pain, moderate (4-7) Stop: 04/15/17 18:14 Lorazepam (Ativan) 1 mg IVP Q2H PRN; Protocol PRN Reason: Anxiety Lorazepam (Ativan) 2 mg IVP Q4H DAILY PRN Reason: Protocol Last Admin: 04/11/17 09:14 Dose: 2 mg Multivitamins/Minerals (Therapeutic-M Tab) 1 tab PO 0800 [facility] Last Admin: 04/11/17 09:08 Dose: 1 tab Ondansetron HCl (Zofran Inj) 4 mg IVP Q4H PRN PRN Reason: Nausea/Vomiting Pantoprazole Sodium (Protonix Inj) 40 mg IVP DAILY DAILY Last Admin: 04/11/17 09:07 Dose: 40 mg Thiamine HCl (Vitamin B1 Tab) 100 mg PO DAILY DAILY Last Admin: 04/11/17 09:08 Dose: 100 mg Vitamin A (Vitamin A & D Oint Ud Foilpak) 1 ea TOP Q2 PRN PRN Reason: Dry mouth - Labs Labs: 04/11/17 06:00 04/11/17 06:00 PT 13.5 SECONDS (9.4-12.5) H 04/11/17 06:30 INR 1.17 (0.93-1.08) H 04/11/17 06:30 APTT 37.9 Seconds (25.1-36.5) H 04/11/17 06:00 - Constitutional Appears: Non-toxic, No Acute Distress - Head Exam Head Exam: ATRAUMATIC, NORMOCEPHALIC - Eye Exam Eye Exam: EOMI, Scleral icterus - ENT Exam ENT Exam: Mucous Membranes Moist, Normal External Ear Exam - Respiratory Exam Respiratory Exam: NORMAL BREATHING PATTERN. absent: Accessory Muscle Use, Respiratory Distress - GI/Abdominal Exam GI & Abdominal Exam: Soft, Tenderness (R side). absent: Distended, Firm, Guarding, Rigid, Rebound - Extremities Exam Extremities Exam: absent: Calf Tenderness, Pedal Edema - Neurological Exam Neurological Exam: Alert, Awake, Oriented x3 - Psychiatric Exam Psychiatric exam: Normal Affect, Normal Mood - Skin Skin Exam: Dry, Normal Color, Warm Assessment and Plan - Assessment and Plan (Free Text) Assessment: 46M w. hx of hepatic steatosis, Transaminitis/hyperbilirubinemia 2/2 ETOH abuse presents w. R side abd pain -F/U official read of CT -F/U hep panel -Child Amaya Class B: 30% merry-operative mortality rate -Recommend conservative management -c/w abx -will start CLD and ADAT -will continue to follow -d/w attending Ailynitis PGY3
--- NOTE | 2017-04-11 11:56 | CT ---
PROCEDURE: CT Abdomen and Pelvis with contrast HISTORY: RUQ pain, hepatic steatosis COMPARISON: None. TECHNIQUE: CT scan of the abdomen and pelvis was performed after intravenous administration of contrast. Oral contrast was administered. Coronal and sagittal reformatted images were obtained. Contrast dose: 100 mL Omnipaque 350 Radiation dose: Total exam DLP = 338.13 mGy-cm. This CT exam was performed using one or more of the following dose reduction techniques: Automated exposure control, adjustment of the mA and/or kV according to patient size, and/or use of iterative reconstruction technique. FINDINGS: LOWER THORAX: There are bilateral small pleural effusions. LIVER: There is mild hepatomegaly and diffuse fatty infiltration in the liver. No intrahepatic biliary ductal dilatation. GALLBLADDER AND BILE DUCTS: There are no calcified gallstones. PANCREAS: The pancreas is normal in size with homogeneous enhancement. No focal mass or ductal dilatation. SPLEEN: Normal in size and appearance. ADRENALS: No discrete nodule. KIDNEYS AND URETERS: Both kidneys are normal in size and there is homogeneous enhancement. No hydronephrosis. No solid mass. VASCULATURE: No aortic aneurysm. BOWEL: The small bowel loops are normal in caliber. The colon is unremarkable. No bowel dilatation or obstruction. APPENDIX: Normal appendix. PERITONEUM: No free fluid. No free air. LYMPH NODES: No enlarged lymph nodes. BLADDER: The urinary bladder is normal in appearance. REPRODUCTIVE: The prostate gland is normal in size. BONES: Within normal limits for the patient's age. OTHER FINDINGS: There is small perihepatic ascites. IMPRESSION: Mild hepatomegaly and hepatic steatosis. Steatosis perihepatic ascites.
[2017-04-11 12:04] LABS: HEPATITIS B SURFACE AG Negative (NEGATIVE)
[2017-04-11 12:10] LABS: HEPATITIS A IGM NEGATIVE (NEGATIVE); HEPATITIS B CORE AB NEGATIVE (NEGATIVE)
[2017-04-11 12:22] LABS: HEPATITIS C ANTIBODY NEGATIVE (NEGATIVE)
--- NOTE | 2017-04-11 13:59 | CP.PCM.PN ---
<Vitaliy Brand - Last Filed: 04/11/17 13:52> Subjective - Date & Time of Evaluation Date of Evaluation: 04/11/17 Time of Evaluation: 07:40 - Subjective Subjective: Medicine progress note for Dr. Tom Currie Hospitalist Service Patient seen and examined at bedside. Patient reports improvement in abdominal pain and states that he has not had an episode of diarrhea since admission. Patient reports that he still feels nauseous. Patient also reports feeling intermittently tremulous. Denies fevers, chills, chest pain, dyspnea, dysuria. Objective - Vital Signs/Intake and Output Vital Signs (last 24 hours): Temp Pulse Resp BP Pulse Ox 98.3 F 59 L 20 144/98 H 99 04/11/17 06:00 04/11/17 06:00 04/11/17 06:00 04/11/17 06:00 04/11/17 06:00 Intake and Output: 04/11/17 04/11/17 06:59 18:59 Intake Total 0 Output Total 100 Balance -100 - Medications Medications: Current Medications Folic Acid (Folic Acid) 1 mg PO DAILY [facility] Last Admin: 04/11/17 09:06 Dose: 1 mg Heparin Sodium (Porcine) (Heparin) 5,000 units SC Q12 DAILY PRN Reason: Protocol Last Admin: 04/11/17 09:06 Dose: 5,000 units Metronidazole (Flagyl) 500 mg in 100 mls @ 100 mls/hr IVPB Q8 DAILY PRN Reason: Protocol Last Admin: 04/11/17 05:22 Dose: 100 mls/hr Ceftriaxone Sodium (Rocephin 1 Gram Ivpb) 1 gm in 100 mls @ 100 mls/hr IVPB DAILY DAILY PRN Reason: Protocol Last Admin: 04/11/17 09:07 Dose: 100 mls/hr Sodium Chloride (Sodium Chloride 0.9%) 1,000 mls @ 100 mls/hr IV .Q10H [facility] Last Admin: 04/11/17 09:08 Dose: 100 mls/hr Ketorolac Tromethamine (Toradol) 60 mg IM Q8H PRN PRN Reason: Pain, moderate (4-7) Stop: 04/15/17 18:14 Lorazepam (Ativan) 1 mg IVP Q2H PRN; Protocol PRN Reason: Anxiety Lorazepam (Ativan) 2 mg IVP Q4H DAILY PRN Reason: Protocol Last Admin: 04/11/17 09:14 Dose: 2 mg Multivitamins/Minerals (Therapeutic-M Tab) 1 tab PO 0800 [facility] Last Admin: 04/11/17 09:08 Dose: 1 tab Ondansetron HCl (Zofran Inj) 4 mg IVP Q4H PRN PRN Reason: Nausea/Vomiting Pantoprazole Sodium (Protonix Inj) 40 mg IVP DAILY [facility] Last Admin: 04/11/17 09:07 Dose: 40 mg Thiamine HCl (Vitamin B1 Tab) 100 mg PO DAILY [facility] Last Admin: 04/11/17 09:08 Dose: 100 mg Vitamin A (Vitamin A & D Oint Ud Foilpak) 1 ea TOP Q2 PRN PRN Reason: Dry mouth - Labs Labs: 04/11/17 06:00 04/11/17 06:00 PT 13.5 SECONDS (9.4-12.5) H 04/11/17 06:30 INR 1.17 (0.93-1.08) H 04/11/17 06:30 APTT 37.9 Seconds (25.1-36.5) H 04/11/17 06:00 - Constitutional Appears: No Acute Distress - Head Exam Head Exam: ATRAUMATIC, NORMOCEPHALIC - Eye Exam Eye Exam: EOMI, PERRL - ENT Exam ENT Exam: Mucous Membranes Moist - Respiratory Exam Respiratory Exam: Clear to Ausculation Bilateral, NORMAL BREATHING PATTERN. absent: Rales, Rhonchi, Wheezes - Cardiovascular Exam Cardiovascular Exam: REGULAR RHYTHM, +S1, +S2 - GI/Abdominal Exam GI & Abdominal Exam: Soft, Normal Bowel Sounds. absent: Tenderness - Extremities Exam Extremities Exam: absent: Pedal Edema - Neurological Exam Neurological Exam: Alert, Awake, Oriented x3 - Psychiatric Exam Psychiatric exam: Normal Affect, Normal Mood - Skin Skin Exam: Dry, Warm Assessment and Plan - Assessment and Plan (Free Text) Assessment: 46 year old male with a past medical history significant for fatty liver, alcohol abuse/withdrawal, asthma, and HLD who presents with epigastric and RLQ abdominal pain with two episodes of associated non-bloody vomiting and multiple episodes of non-bloody diarrhea that began on the day prior to admission. Patient found to have elevated total bilirubin and liver enzymes in ED. Ultrasound of the gallbladder showed cholelithiasis without cholecystitis. Patient is also being treated for alcohol withdrawal. CT abdomen/ pelvis did not show evidence of acute pathology. 1. Epigastric and Hypogastric/RLQ Abdominal Pain -GB U/S showed cholelithiasis with moderate gallbladder distention and GB wall thickening with mixed pattern for possible cholecystitis. CBD was noted to be normal caliber -Three serial troponins negative -Hepatitis panel negative -IV Rocephin and Flagyl -Toradol 60mg IM Q8 PRN for pain control -Zofran PRN for N/V -Surgery consulted, all recommendations appreciated. Conservative management recommended. -CT abdomen/pelvis shows mild hepatomegaly, hepatic steatosis, small perihepatic ascites -Liquid diet for now and will advance as tolerated 2. Alcohol Withdrawal -Alcohol level <10 on admission -UDS negative -Ativan 2mg IVP Q4 DAILY and 1mg IVP Q2 PRN -CIWA Assessments Q4 -Fall, Aspiration and Seizure precautions 3. Diarrhea -C. Diff and Fecal Leukocytes pending 4. History of HLD -Lipid panel pending GI Prophylaxis: Protonix DVT Prophylaxis: Heparin and SCD's Patient seen and discussed with attending, Dr. Tom Currie. <Tom Currie B - Last Filed: 04/12/17 13:09> Objective - Vital Signs/Intake and Output Vital Signs (last 24 hours): Temp Pulse Resp BP Pulse Ox 97.9 F 83 20 119/82 96 04/12/17 06:00 04/12/17 06:00 04/12/17 06:00 04/12/17 06:00 04/12/17 06:00 Intake and Output: 04/12/17 04/12/17 06:59 18:59 Intake Total 660 Output Total 1200 Balance -540 - Labs Labs: 04/12/17 06:00 04/12/17 06:00 PT 13.5 SECONDS (9.4-12.5) H 04/11/17 06:30 INR 1.17 (0.93-1.08) H 04/11/17 06:30 APTT 37.9 Seconds (25.1-36.5) H 04/11/17 06:00 Attending/Attestation - Attestation I have personally seen and examined this patient.: Yes I have fully participated in the care of the patient.: Yes I have reviewed all pertinent clinical information, including history, physical exam and plan: Yes Notes (Text): I have seen and examined the patient at bedside. Agree with the above note with the following additions/ exceptions: Briefly this is 46 year old male with history of fatty liver, alcohol abuse/withdrawal, asthma, and HLD who was admitted for evaluation of abdominal pain and diarrhea. Reports improvement in abdominal pain. GB ultrasound revealed cholethiasis with possible cholecystitis. CBD normal. Surgery consult appreciated. CT scan of abdomen pending. Diarrhea has improved as well. Serial trop normal. Patient has mild tremors however denies chest pain, sob, nausea, vomiting, auditory or visual hallucinations. Continue ativan prn. . Hep panel negative. Upon discharge patient will follow up with Dr Vela. Dr Tom Currie
--- NOTE | 2017-04-11 16:57 | PN ---
DATE: SUBJECTIVE: Feroz Logan is seen in the floor. He was admitted for alcohol withdrawal with shakes. He was noted to be in the hospital several months ago with an ultrasound showed distended gallbladder without stones, but steatosis of the liver. At that time, his liver functions were elevated. Ultrasound on admission showed thick-walled gallbladder with some fluid around that suggesting possible cholecystitis. There is steatosis of the very least. LABORATORY DATA: His white count is 3.5, hemoglobin 13.7. Albumin is 2.8, bili is up to 4. His AST is down to 76 and alk phos was 129, now it is normal, that was yesterday. Lipase normal. PHYSICAL EXAMINATION: GENERAL: He is obtunded, somewhat shaky. ABDOMEN: Soft, but there was some mild epigastric tenderness that is diffuse. PLAN: CAT scan is ordered, HIDA is pending and really we need a CAT scan. I think this sasha has probably early cirrhosis and I think these are congestive changes from the liver, not related to cholecystitis. This indicates he is at very high risk for cholecystectomy. We will follow . Nba Medeiros MD
--- NOTE | 2017-04-11 19:27 | CP.PCM.PCO ---
Physician Communication Note - Physician Communication Note Physician Communication Note: CT abdomen: Liver steatosis/ascites, no sign of cholecystitis. Surgery S/O
[2017-04-12] MEDS: Sodium Chloride 0.9% 1,000 ML IV SCH (03:06)
[2017-04-12] MEDS: metroNIDAZOLE IV 500 mg/100 ml 500 MG/100 ML BAG IVPB SCH (05:43)
[2017-04-12 06:34] LABS: BASO # 0.04 K/mm3 (0.0-2.0); EOS # 0.3 (0.0-0.7); EOS % 8.8 % (1.5-5.0); GRAN # 1.6 (1.4-6.5); GRAN % 41.3 % (50.0-68.0); HEMOGLOBIN 13.3 g/dL (14.0-18.0); LYMPH # 1.3 (1.2-3.4); LYMPH % 33.1 % (22.0-35.0); MEAN CELL VOLUME 93.5 fl (80.0-105.0); MEAN CORPUSCULAR HEMOGLOBIN 31.8 pg (25.0-35.0); MEAN PLATELET VOLUME 11.3 fl (7.0-11.0); MONO # 0.6 (0.1-0.6); MONO % 15.8 % (1.0-6.0); RBC 4.18 10^6/uL (3.5-6.1); WHITE BLOOD COUNT 3.9 10^3/ul (4.5-11.0)
[2017-04-12 06:44] LABS: ALB/GLOB RATIO 0.6 (1.1-1.8); ALBUMIN 2.8 g/dL (3.0-4.8); ALT/SGPT 29 U/L (7-56); AST/SGOT 71 U/L (17-59); BLOOD UREA NITROGEN 4 mg/dL (7-21); CALCIUM 8.8 mg/dL (8.4-10.5); GFR AFRICAN-AMERICAN > 60; GFR NON-AFRICAN AMERICAN > 60
[2017-04-12 08:31] VITALS: BP 119/82; PULSE 83; TEMP 97.9; O2SAT 96
[2017-04-12] MEDS: cefTRIAXone 1 gm 1 GM/100 ML BAG IVPB SCH (09:10)
[2017-04-12] MEDS: Multivitamin With Minerals Tab PO SCH (09:11)
--- NOTE | 2017-04-12 12:01 | CP.PCM.DIS ---
<Vitaliy Brand S - Last Filed: 04/12/17 13:15> Provider - Provider Date of Admission: 04/10/17 17:14 Attending physician: Tom Currie MD Primary care physician: Tej Vela MD Consults: Surgery: Dr. Medeiros Time Spent in preparation of Discharge (in minutes): 40 Diagnosis - Discharge Diagnosis (1) Cholelithiasis without cholecystitis Status: Acute Priority: High (2) Gastroenteritis Status: Acute Priority: High (3) Alcohol abuse Status: Chronic Priority: Medium (4) Hepatic steatosis Status: Chronic Priority: Medium Hospital Course - Lab Results Lab Results: Most Recent Lab Values WBC 3.9 10^3/ul (4.5-11.0) L 04/12/17 06:00 RBC 4.18 10^6/uL (3.5-6.1) 04/12/17 06:00 Hgb 13.3 g/dL (14.0-18.0) L 04/12/17 06:00 Hct 39.1 % (42.0-52.0) L 04/12/17 06:00 MCV 93.5 fl (80.0-105.0) 04/12/17 06:00 MCH 31.8 pg (25.0-35.0) 04/12/17 06:00 MCHC 34.0 g/dl (31.0-37.0) 04/12/17 06:00 RDW 13.0 % (11.5-14.5) 04/12/17 06:00 Plt Count 102 10^3/uL (120.0-450.0) L 04/12/17 06:00 MPV 11.3 fl (7.0-11.0) H 04/12/17 06:00 Gran % 41.3 % (50.0-68.0) L 04/12/17 06:00 Lymph % (Auto) 33.1 % (22.0-35.0) 04/12/17 06:00 [place] % (Auto) 15.8 % (1.0-6.0) H 04/12/17 06:00 Eos % (Auto) 8.8 % (1.5-5.0) H 04/12/17 06:00 Baso % (Auto) 1.0 % (0.0-3.0) 04/12/17 06:00 Gran # 1.60 (1.4-6.5) 04/12/17 06:00 Lymph # (Auto) 1.3 (1.2-3.4) 04/12/17 06:00 [place] # (Auto) 0.6 (0.1-0.6) 04/12/17 06:00 Eos # (Auto) 0.3 (0.0-0.7) 04/12/17 06:00 Baso # (Auto) 0.04 K/mm3 (0.0-2.0) 04/12/17 06:00 PT 13.5 SECONDS (9.4-12.5) H 04/11/17 06:30 INR 1.17 (0.93-1.08) H 04/11/17 06:30 APTT 37.9 Seconds (25.1-36.5) H 04/11/17 06:00 Sodium 138 mmol/L (132-148) 04/12/17 06:00 Potassium 3.8 mmol/L (3.6-5.0) 04/12/17 06:00 Chloride 106 mmol/L (98-107) 04/12/17 06:00 Carbon Dioxide 25 mmol/L (21-33) 04/12/17 06:00 Anion Gap 11 (10-20) 04/12/17 06:00 BUN 4 mg/dL (7-21) L 04/12/17 06:00 Creatinine 0.7 mg/dl (0.8-1.5) L 04/12/17 06:00 Est GFR ( Amer) > 60 04/12/17 06:00 Est GFR (Non-Af Amer) > 60 04/12/17 06:00 Random Glucose 97 mg/dL (70-110) 04/12/17 06:00 Calcium 8.8 mg/dL (8.4-10.5) 04/12/17 06:00 Phosphorus 4.4 mg/dL (2.5-4.5) 04/11/17 06:00 Magnesium 2.1 mg/dL (1.7-2.2) 04/11/17 06:00 Total Bilirubin 3.1 mg/dL (0.2-1.3) H 04/12/17 06:00 AST 71 U/L (17-59) H 04/12/17 06:00 ALT 29 U/L (7-56) 04/12/17 06:00 Alkaline Phosphatase 102 U/L (38-126) 04/12/17 06:00 Total Creatine Kinase 73 U/L (35-230) 04/10/17 14:20 Troponin I < 0.01 ng/mL 04/11/17 06:00 Total Protein 7.5 g/dL (5.8-8.3) 04/12/17 06:00 Albumin 2.8 g/dL (3.0-4.8) L 04/12/17 06:00 Globulin 4.7 gm/dL 04/12/17 06:00 Albumin/Globulin Ratio 0.6 (1.1-1.8) L 04/12/17 06:00 Triglycerides 45 mg/dL (35-160) 04/11/17 06:00 Cholesterol 156 mg/dL (130-200) 04/11/17 06:00 LDL Cholesterol Direct 42 mg/dL (0-129) 04/11/17 06:00 HDL Cholesterol 98 mg/dL (29-60) H 04/11/17 06:00 Lipase 189 U/L (23-300) 04/10/17 14:20 Salicylates < 1 mg/dL (2.0-20.0) L 04/10/17 14:20 Urine Opiates Screen Negative (NEGATIVE) 04/10/17 18:26 Urine Methadone Screen Negative (NEGATIVE) 04/10/17 18:26 Acetaminophen < 10.0 ug/ml (10.0-20.0) L 04/10/17 14:20 Ur Barbiturates Screen Negative (NEGATIVE) 04/10/17 18:26 Ur Phencyclidine Scrn Negative (NEGATIVE) 04/10/17 18:26 Ur Amphetamines Screen Negative (NEGATIVE) 04/10/17 18:26 U Benzodiazepines Scrn Negative (NEGATIVE) 04/10/17 18:26 U Oth Cocaine Metabols Negative (NEGATIVE) 04/10/17 18:26 U Cannabinoids Screen Negative (NEGATIVE) 04/10/17 18:26 Alcohol, Quantitative < 10 mg/dL (0-10) 04/10/17 14:20 Hepatitis A IgM Ab Negative (NEGATIVE) 04/11/17 06:30 Hep Bs Antigen Negative (NEGATIVE) 04/11/17 06:30 Hep B Core IgM Ab Negative (NEGATIVE) 04/11/17 06:30 Hepatitis C Antibody Negative (NEGATIVE) 04/11/17 06:30 Influenza Typ A,B (EIA) Negative for flu a/b (NEGATIVE) 04/10/17 14:20 - Hospital Course Hospital Course: Initial History of Present Illness on 04/10/17: "Mr. Logan is a 46 year old male with a past medical history significant for fatty liver, alcohol abuse/withdrawal, asthma, and HLD who presents with epigastric and hypogastric/RLQ abdominal pain with two episodes of associated non-bloody vomiting and multiple episodes of non-bloody diarrhea that began yesterday. Patient reports that while at rest yesterday, he suddenly experienced epigastric pain that he describes as a pressure and rates as a 10/ 10 that has been constant since that time, although fluctuations in the intensity were noted. Shortly after this he also began to experience a sharp hypogastric/RLQ pain that he rates as a 10/10 that has also been constant since that time, although fluctuations in intensity were also noted. He reports that yesterday he had two episodes of associated non-bloody vomiting and has had continuous diarrhea since this morning. He reports that he tried Tramadol and an unknown medication with no improvement. He reports that he was seen in Dr. Vela's office last week with similar complaints, for which a CT Abdomen/ Pelvis was done but patient was not notified of the results. He denies fever, chills, headache, changes in his vision, rhinorrhea, sore throat, chest pain, palpitations, syncope, leg swelling, SOB, cough, wheezing, sputum production, hematemesis, hematochezia, melena, urinary symptoms, skin changes, or any numbness/tingling/weakness of any extremity." Hospital Course: Patient admitted for abdominal pain. There was concern for cholecystitis because of cholelithiasis seen on ultrasound. CT abdomen/pelvis did not show evidence of cholecystitis. Instead, it showed shows mild hepatomegaly, hepatic steatosis, small perihepatic ascites. Patient's diet was advanced and he was able to tolerate. Upon the day of discharge, patient did not have signs of alcohol withdrawal. Patient was strongly advised for alcohol cessation. Patient instructed to follow up with his primary physician to obtain a referral to surgery for elective cholecystectomy. Patient verbalized understanding. Discharge Exam - Head Exam Head Exam: ATRAUMATIC, NORMOCEPHALIC - Eye Exam Eye Exam: EOMI, Normal appearance - ENT Exam ENT Exam: Mucous Membranes Moist - Respiratory Exam Respiratory Exam: Clear to PA & Lateral, NORMAL BREATHING PATTERN. absent: Rales, Rhonchi, Wheezes - Cardiovascular Exam Cardiovascular Exam: REGULAR RHYTHM, +S1, +S2 - GI/Abdominal Exam GI & Abdominal Exam: Normal Bowel Sounds, Soft. absent: Distended, Tenderness - Extremities Exam Extremities exam: full ROM, pedal pulses present - Neurological Exam Neurological exam: Alert, CN II-XII Intact, Oriented x3 - Psychiatric Exam Psychiatric exam: Normal Affect, Normal Mood - Skin Skin Exam: Dry, Warm Discharge Plan - Discharge Medications Prescriptions: Folic Acid 1 mg PO DAILY #30 tab Multimineral/Multivitamin [Therapeutic-M Tab] 1 tab PO 0800 #30 tab Thiamine [Vitamin B1 Tab] 100 mg PO DAILY #30 tab - Follow Up Plan Condition: STABLE Disposition: HOME/ ROUTINE Instructions: Alcohol Withdrawal Additional Instructions: Please follow up with your primary physician Dr. Vela next week. You have gallstones but do not currently have any inflammation or infection of the gallbladder itself. Please cut down and avoid alcohol consumption. Please stay hydrated with fluids. If there are any new or worsening symptoms, please go to the nearest emergency room. Referrals: Tej Vela MD [Primary Care Provider] - <Tom Currie - Last Filed: 04/12/17 14:00> Provider - Provider Date of Admission: 04/10/17 17:14 Attending physician: Tom Currie MD Primary care physician: Tej Vela MD Hospital Course - Lab Results Lab Results: Most Recent Lab Values WBC 3.9 10^3/ul (4.5-11.0) L 04/12/17 06:00 RBC 4.18 10^6/uL (3.5-6.1) 04/12/17 06:00 Hgb 13.3 g/dL (14.0-18.0) L 04/12/17 06:00 Hct 39.1 % (42.0-52.0) L 04/12/17 06:00 MCV 93.5 fl (80.0-105.0) 04/12/17 06:00 MCH 31.8 pg (25.0-35.0) 04/12/17 06:00 MCHC 34.0 g/dl (31.0-37.0) 04/12/17 06:00 RDW 13.0 % (11.5-14.5) 04/12/17 06:00 Plt Count 102 10^3/uL (120.0-450.0) L 04/12/17 06:00 MPV 11.3 fl (7.0-11.0) H 04/12/17 06:00 Gran % 41.3 % (50.0-68.0) L 04/12/17 06:00 Lymph % (Auto) 33.1 % (22.0-35.0) 04/12/17 06:00 [place] % (Auto) 15.8 % (1.0-6.0) H 04/12/17 06:00 Eos % (Auto) 8.8 % (1.5-5.0) H 04/12/17 06:00 Baso % (Auto) 1.0 % (0.0-3.0) 04/12/17 06:00 Gran # 1.60 (1.4-6.5) 04/12/17 06:00 Lymph # (Auto) 1.3 (1.2-3.4) 04/12/17 06:00 [place] # (Auto) 0.6 (0.1-0.6) 04/12/17 06:00 Eos # (Auto) 0.3 (0.0-0.7) 04/12/17 06:00 Baso # (Auto) 0.04 K/mm3 (0.0-2.0) 04/12/17 06:00 PT 13.5 SECONDS (9.4-12.5) H 04/11/17 06:30 INR 1.17 (0.93-1.08) H 04/11/17 06:30 APTT 37.9 Seconds (25.1-36.5) H 04/11/17 06:00 Sodium 138 mmol/L (132-148) 04/12/17 06:00 Potassium 3.8 mmol/L (3.6-5.0) 04/12/17 06:00 Chloride 106 mmol/L (98-107) 04/12/17 06:00 Carbon Dioxide 25 mmol/L (21-33) 04/12/17 06:00 Anion Gap 11 (10-20) 04/12/17 06:00 BUN 4 mg/dL (7-21) L 04/12/17 06:00 Creatinine 0.7 mg/dl (0.8-1.5) L 04/12/17 06:00 Est GFR ( Amer) > 60 04/12/17 06:00 Est GFR (Non-Af Amer) > 60 04/12/17 06:00 Random Glucose 97 mg/dL (70-110) 04/12/17 06:00 Calcium 8.8 mg/dL (8.4-10.5) 04/12/17 06:00 Phosphorus 4.4 mg/dL (2.5-4.5) 04/11/17 06:00 Magnesium 2.1 mg/dL (1.7-2.2) 04/11/17 06:00 Total Bilirubin 3.1 mg/dL (0.2-1.3) H 04/12/17 06:00 AST 71 U/L (17-59) H 04/12/17 06:00 ALT 29 U/L (7-56) 04/12/17 06:00 Alkaline Phosphatase 102 U/L (38-126) 04/12/17 06:00 Total Creatine Kinase 73 U/L (35-230) 04/10/17 14:20 Troponin I < 0.01 ng/mL 04/11/17 06:00 Total Protein 7.5 g/dL (5.8-8.3) 04/12/17 06:00 Albumin 2.8 g/dL (3.0-4.8) L 04/12/17 06:00 Globulin 4.7 gm/dL 04/12/17 06:00 Albumin/Globulin Ratio 0.6 (1.1-1.8) L 04/12/17 06:00 Triglycerides 45 mg/dL (35-160) 04/11/17 06:00 Cholesterol 156 mg/dL (130-200) 04/11/17 06:00 LDL Cholesterol Direct 42 mg/dL (0-129) 04/11/17 06:00 HDL Cholesterol 98 mg/dL (29-60) H 04/11/17 06:00 Lipase 189 U/L (23-300) 04/10/17 14:20 Salicylates < 1 mg/dL (2.0-20.0) L 04/10/17 14: Urine Opiates Screen Negative (NEGATIVE) 04/10/17 18: Urine Methadone Screen Negative (NEGATIVE) 04/10/17 18: Acetaminophen < 10.0 ug/ml (10.0-20.0) L 04/10/17: Ur Barbiturates Screen Negative (NEGATIVE) 04/10/17 18: Ur Phencyclidine Scrn Negative (NEGATIVE) 04/10/17 18: Ur Amphetamines Screen Negative (NEGATIVE) 04/10/17 18: U Benzodiazepines Scrn Negative (NEGATIVE) 04/10/17: U Oth Cocaine Metabols Negative (NEGATIVE) 04/10/17 18: U Cannabinoids Screen Negative (NEGATIVE) 04/10/17 18: Alcohol, Quantitative < 10 mg/dL (0-10) 04/10/17 14: Hepatitis A IgM Ab Negative (NEGATIVE) 04/11/17 06:30 Hep Bs Antigen Negative (NEGATIVE) 04/11/17 06:30 Hep B Core IgM Ab Negative (NEGATIVE) 04/11/17 06:30 Hepatitis C Antibody Negative (NEGATIVE) 04/11/17 06:30 Influenza Typ A,B (EIA) Negative for flu a/b (NEGATIVE) 04/10/17 14:20 Attending/Attestation - Attestation I have personally seen and examined this patient.: Yes I have fully participated in the care of the patient.: Yes I have reviewed all pertinent clinical information, including history, physical exam and plan: Yes Notes (Text): I have seen and examined the patient at bedside. Agree with the above note with the following additions/ exceptions: Briefly this is 46 year old male with history of fatty liver, alcohol abuse/withdrawal, asthma, and HLD who was admitted for evaluation of abdominal pain and diarrhea. Reports improvement in abdominal pain. GB ultrasound revealed cholethiasis with possible cholecystitis. CBD normal. Surgery consult appreciated. CT scan of abdomen revealed hepatic steatosis and perhepatic ascites. Advised patient to stop drinking alcohol. Life style modifications recommended. Advised CM to give him information regarding AA meetings. Diarrhea has improved as well. Serial trop normal. Patient denies chest pain, tremors, sob, nausea, vomiting, auditory or visual hallucinations. Continue ativan prn. Hep panel negative. Upon discharge patient will follow up with Dr Vela. Dr Tom Currie
== END 2017-04-12 12:49 | disposition home or self-care (01) ==
LOC: ED 13:32 → INTOOBSV 17:14 → ERH 17:14 → 3RNO 19:08
PROVIDERS: ADMIT Hospitalist; ATTEND Hospitalist
DX: K80.20 Calculus of gallbladder without cholecystitis without obstruction (principal); K52.9 Noninfective gastroenteritis and colitis, unspecified; F10.239 Alcohol dependence with withdrawal, unspecified; K76.0 Fatty (change of) liver, not elsewhere classified; R18.8 Other ascites; J45.909 Unspecified asthma, uncomplicated; E78.5 Hyperlipidemia, unspecified; Y90.0 Blood alcohol level of less than 20 mg/100 ml
CPT/HCPCS: 36415; 71045; 74177; 76705; 80053; 80061; 80074; 80320; 80324; 80329; 80345; 80346; 80349; 80353; 80358; 80361; 82550; 83690; 83735; 83992; 84100; 84484; 85025; 85610; 85730; 87804; 96361; 96365; 96375; 96376; 99285; C9113; G0378; J0696; J1644; J2060; J2405; J3475; J7040; Q9967